=== PATIENT | female | born 1960 | race Two or more races ===

== ENCOUNTER 2018-08-18 12:02 | Emergency (ER) | payer OTHER ==
[~2018-08-18] VITALS: Ht 152.4 cm; Wt 76.7 kg
[2018-08-18 12:06] VITALS: BP 148/82
== END 2018-08-18 12:29 | disposition home or self-care (01) ==
LOC: ER 12:05
DX: S09.8XXA Other specified injuries of head, initial encounter (principal); I10 Essential (primary) hypertension; Z90.89 Acquired absence of other organs; V49.49XA Driver injured in collision with other motor vehicles in traffic accident, initial encounter; Y93.89 Activity, other specified; Y92.410 Unspecified street and highway as the place of occurrence of the external cause; Y99.8 Other external cause status
CPT/HCPCS: Z7502